=== PATIENT | male | born 1995 | race Caucasian/White ===

== ENCOUNTER 2016-10-11 03:01 | Emergency (ER) | payer MEDICAID ==
[~2016-10-11] VITALS: Ht 170.2 cm; Wt 54.8 kg
[2016-10-11 03:03] VITALS: BP 131/81
== END 2016-10-11 04:26 | disposition home or self-care (01) ==
LOC: ED 04:16
DX: M25.532 Pain in left wrist (principal); L73.2 Hidradenitis suppurativa; Z98.890 Other specified postprocedural states
CPT/HCPCS: 29125